=== PATIENT | female | born 1985 | race Caucasian/White ===

== ENCOUNTER → 2018-12-21 | Outpatient (CLI) | payer BC | LOC: LAB.O 11:22 | PROVIDERS: ATTEND Nurse Practitioner Family | DX: Z00.00 Encounter for general adult medical examination without abnormal findings (principal); R03.0 Elevated blood-pressure reading, without diagnosis of hypertension; R73.09 Other abnormal glucose; E03.9 Hypothyroidism, unspecified; E66.01 Morbid (severe) obesity due to excess calories; Z80.3 Family history of malignant neoplasm of breast; Z83.3 Family history of diabetes mellitus; Z97.5 Presence of (intrauterine) contraceptive device ==

== ENCOUNTER → 2019-01-03 | Outpatient (CLI) | payer BC ==
--- NOTE | 2019-01-05 15:33 | MAM ---
EXAM DESCRIPTION: 3D Screening BILATERAL : Digital Mammography. 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 No personal history of breast cancer. Remote family history of breast cancer. Menarche age 16. Childbirth. Premenopausal. No HRT. Lifetime risk of developing breast cancer (Tyrer-Cuzick model)(%): Not Calculated due to age patient less than 35 years. COMPARISON: Baseline study at this facility.. No prior reports available. TECHNIQUE: Bilateral CC and MLO projection full-field images, digital tomosynthesis mammographic technique. Bilateral digital 2-D full-field MLO images. CAD not available for tomosynthesis or 2-D images. FINDINGS: The breast parenchymal density pattern is: Scattered areas of fibroglandular density. No skin thickening or nipple retraction. Fibrous tissues are slightly nodule in appearance and more prominent right upper outer quadrant compared to the left upper outer quadrant. Partially circumscribed mass in the upper-outer quadrant of the anterior middle third of the right breast approximately 1 cm diameter and approximately 5 cm from the nipple. Not associated with microcalcifications. No new focal, stellate mass or density, focal asymmetry , and no suspicious microcalcifications left breast. IMPRESSION: BI-RADS CATEGORY: 0 - INCOMPLETE- Need additional imaging evaluation. FOLLOW-UP: Recall for additional imaging: Right breast full-field LM tomosynthesis and 2-D images. Directed right breast ultrasound over the region of interest right breast and same region contralateral left breast.. Written communication concerning the IMPRESSION and Follow-up, will be mailed to the patient and referring health care provider. Electronically signed by: Saúl Callahan MD 01/05/2019 3:31 PM BUTTON INSPECTOR
== END ==
LOC: MAMMO 08:47
PROVIDERS: ATTEND Obstetrics & Gynecology
DX: Z12.31 Encounter for screening mammogram for malignant neoplasm of breast (principal); Z80.9 Family history of malignant neoplasm, unspecified; R03.0 Elevated blood-pressure reading, without diagnosis of hypertension; R73.09 Other abnormal glucose

== ENCOUNTER → 2019-01-22 | Outpatient (CLI) | payer BC ==
--- NOTE | 2019-01-22 17:11 | US ---
EXAM DESCRIPTION: 3D Diagnostic, Bilateral (accession [id number]), Breast,Right (accession [id number]): Ultrasound CLINICAL HISTORY: 33 yearsFemaleABNORMAL MAMMO mass in the upper outer quadrant of the mid to anterior third of the right breast. Mother with breast cancer at age 44. No personal history of breast cancer. Remote family history of breast cancer. Menarche age 16. Childbirth. Premenopausal. No HRT. Lifetime risk of developing breast cancer (Tyrer-Cuzick model)(%): Not Calculated due to age patient less than 35 years. COMPARISON: Bilateral screening digital breast tomosynthesis 03 January 2019. TECHNIQUE: Bilateral LM projection full-field images, digital tomosynthesis technique. Bilateral 2-D digital full-field images. CC and LM projections. CAD not available. . Transcutaneous scanning of the left breast utilizing espino-scale and Doppler modes. Scanning performed by the hospital insurance representative and Dr. Callahan. FINDINGS: The breast parenchymal density pattern is: Scattered areas of fibroglandular density. No skin thickening or nipple retraction mass density at the 10:30 position of the right breast approximately 6 cm from the nipple. Circumscribed and lobulated margins. No definite calcifications. Ultrasound: Scanning of the upper-outer quadrant of the right breast. Heterogeneous mixture of fatty and fibroglandular tissues. 3:00 position 6 cm from the nipple. Lobulated hypoechoic mass with the anterior projection which is relatively smooth margin. The mass is not vascular. Wider than tall orientation. Partial posterior acoustic shadowing Dimensions 1.1 x 1.1 cm. No distinct cyst or large calcifications. Possibly fibroadenoma or reactive lymph node. IMPRESSION: 1. BI-RADS Category 4: SUSPICIOUS. Sub-category 4A - Low Suspicion For Malignancy. 2. Surgical consultation and tissue diagnosis is recommended if there are no clinical contraindications. The FINDINGS and FOLLOW-UP plan were reviewed in person with the patient following the examination. Written communication explaining the IMPRESSION and FOLLOW-UP will be mailed to the patient and referring care provider. CRITICAL COMMUNICATION: The critical value was discussed directly by phone by Dr. Callahan, with KAUSHIK Cade at approximately 1510 hours, on January 22, 2019. Electronically signed by: Saúl Callahan MD 01/22/2019 5:10 PM INVESTIGATION DIVISION CAPTAIN
== END ==
LOC: MAMMO 13:37
PROVIDERS: ATTEND Nurse Practitioner Family
DX: Z80.9 Family history of malignant neoplasm, unspecified (principal)
CPT/HCPCS: 76641; 77066; G0279